=== PATIENT | male | born 1970 | race Caucasian/White ===

== ENCOUNTER 2017-04-30 00:26 | Emergency (ER) | payer OTHER | END 2017-04-30 02:44 | disposition other institution (70) | LOC: ED 00:26 | DX: Z02.89 Encounter for other administrative examinations (principal) ==

== ENCOUNTER 2017-04-30 00:26 | Emergency (ER) | payer OTHER ==
[2017-04-30 02:44] VITALS: BP 147/99
== END 2017-04-30 02:44 | disposition other institution (70) ==
LOC: ED 00:26
DX: E11.65 Type 2 diabetes mellitus with hyperglycemia (principal); F10.129 Alcohol abuse with intoxication, unspecified; M54.9 Dorsalgia, unspecified; Z79.84 Long term (current) use of oral hypoglycemic drugs
CPT/HCPCS: 82962; J1815

== ENCOUNTER 2018-07-12 00:44 | Emergency (ER) | payer SELFPAY ==
[~2018-07-12] VITALS: Ht 188 cm; Wt 108.9 kg
[2018-07-12 00:45] VITALS: BP 129/94; Ht 188 cm; Wt 108.9 kg
== END 2018-07-12 01:13 | disposition other institution (70) ==
LOC: ED 00:44
DX: Z13.89 Encounter for screening for other disorder (principal); E11.9 Type 2 diabetes mellitus without complications; S50.811A Abrasion of right forearm, initial encounter; X58.XXXA Exposure to other specified factors, initial encounter; Y93.89 Activity, other specified; Y92.89 Other specified places as the place of occurrence of the external cause; Y99.8 Other external cause status

== ENCOUNTER 2018-07-12 00:44 | Emergency (ER) | payer OTHER | END 2018-07-12 01:13 | disposition other institution (70) | LOC: ED 00:44 | DX: Z02.89 Encounter for other administrative examinations (principal) ==

== ENCOUNTER 2019-03-07 03:40 | Emergency (ER) | payer OTHER | END 2019-03-07 06:18 | disposition other institution (70) | LOC: ED 03:40 | DX: Z02.89 Encounter for other administrative examinations (principal) ==

== ENCOUNTER 2019-03-07 03:40 | Emergency (ER) | payer SELFPAY ==
[~2019-03-07] VITALS: Ht 188 cm; Wt 102.1 kg
[2019-03-07 03:45] VITALS: Ht 188 cm; Wt 102.1 kg
[2019-03-07 06:18] VITALS: BP 130/77
== END 2019-03-07 06:18 | disposition other institution (70) ==
LOC: ED 03:40
DX: S00.81XA Abrasion of other part of head, initial encounter (principal); S10.91XA Abrasion of unspecified part of neck, initial encounter; S30.810A Abrasion of lower back and pelvis, initial encounter; E11.65 Type 2 diabetes mellitus with hyperglycemia; W50.4XXA Accidental scratch by another person, initial encounter; Y93.89 Activity, other specified; Y92.89 Other specified places as the place of occurrence of the external cause; Y99.8 Other external cause status
CPT/HCPCS: 82962; 90715; J1815